=== PATIENT | female | born 1955 | race Caucasian/White ===

== ENCOUNTER 2016-08-23 18:02 | Emergency (ER) | payer OTHER ==
--- NOTE | ~2016-08-23 | EKG ---
PATIENT: MILENA VASQUEZ UNIT #: [id number] Ventricular Rate: 99 BPM Atrial Rate: 99 BPM P-R Interval: 164 ms QRS Duration: 68 ms Q-T Interval: 352 ms QTC Calculation(Bezet): 451 ms P [place]: 67 degrees Calculated R [place]: 36 degrees Calculated T [place]: 51 degrees Diagnosis Line: Sinus rhythm with occasional Premature ventricular Diagnosis Line: complexes Diagnosis Line: Otherwise normal ECG Diagnosis Line: Diagnosis Line: Confirmed by GUILLERMO CHOUDHARY MD ([id number]) on 08/24/2016 Diagnosis Line: 5:43:10 PM INTERPRETING MD: KENRICK DELANEY
--- NOTE | ~2016-08-23 | CR72 ---
[facility] A Service of [facility] RADIOLOGY TEXT RESULTS PATIENT: MILENA VASQUEZ LOCATION: [facility] : 51 UNIT #: [id number] AGE: [address]: Aj Mcnamara MD SEX: F ORDER DR: [id number] [facility] [address] [place], [place] [address] [id number] E MR#: [id number] Acc #: [id number] NAME: MILENA VASQUEZ. : 1955 SEX: F STUDY DATE/TIME: 08/23/2016 18:08 UNIT: [facility] ROOM: STUDY DESCRIPTION: CR Chest Single View Portable Attending Physician: Aj Mcnamara M.D. Ordering Physician: Aj Mcnamara M.D. Primary Care Physician: Khushbu Gongora MEDICAL IMAGING REPORT This report is preliminary unless electronic signature is present EXAM Portable chest. INDICATIONS Shortness of air for 1 week. Pneumonia. Positive smoking history. FINDINGS Single portable AP view of the chest compared to 08/02/2015. Heart and mediastinal contours are normal. Lungs are mildly hyperinflated compatible with obstructive lung disease. No pleural effusion. IMPRESSION No acute cardiopulmonary findings. Background COPD. Dictated by... Balwinder Gill M.D. THIS IS AN ELECTRONICALLY VERIFIED REPORT Balwinder Gill M.D. at 08/24/2016 10:29 AM LENNIE/sofía TD: 08/24/2016 09:10 JOB #: [id number] MEDICAL IMAGING REPORT COPY
[2016-08-23 17:58] LABS: POC - CKMB 1.5 ng/mL (0.0-7.9); POC - TROPONIN <0.05 ng/mL (<=0.05)
[2016-08-23 18:02] LABS: BASOPHIL# 0.1 X10e3 (0-0.3); BASOPHIL% 1.2 % (0-2.5); EOSINOPHIL# 0.1 X10e3 (0-0.7); EOSINOPHIL% 1.4 % (0.0-7.0); HEMATOCRIT 43.3 % (35.0-45.0); HEMOGLOBIN 14.3 gm/dL (12.0-16.0); LYMPHOCYTE# 2.1 X10e3 (1.0-3.5); MEAN CELL VOLUME 87.4 FL (83-96); MEAN CORPUSCULAR HEMOGLOBIN 28.9 PG (28-34); MONOCYTE# 0.6 X10e3 (0-1.0); MONOCYTE% 6.8 % (3.0-12.0); NEUTROPHIL% 66.6 % (40-75); PLATELET COUNT 332 X10e3 (140-420); RED BLOOD COUNT 4.96 X10e (3.90-5.30); RED CELL DISTRIBUTION WIDTH 13.9 % (11.0-15.5); WHITE BLOOD COUNT 8.9 X10e3 (4.0-10.5)
[~2016-08-23 18:02] MED LIST: ADVAIR 250-501 EAC1 IH; ADVAIR 250-501 EACH; ADVAIR 500-501 EACH IH; ALBUTEROL MININEB NEB; ALBUTEROL0.63 MG/3 IH; ALBUTEROL17 GM INH; BENTYL20 MG PO; CITALOPRAM HBR40 MG PO; COMBIVENT U/D3 M3 INH; DIAZEPAM PO; DULERA 200 MCG/13 GM INH; FLEXERIL10 M1 PO; HYDROCODON-ACE1 EAC4 PO; IBUPROFEN400 MG PO; IBUPROFEN800 MG PO; IPRATROPIUM0.2 MG/ML NEB; MOTRIN600 M1 PO; OMEPRAZOLE40 M1 PO; PHENERGAN PO; PREDNISONE PO; PREDNISONE50 MG PO; PROAIR HFA8.5 GM INH; PROVENT1 EACH NS; ROXICODONE5 M1 PO; SPIRIVA18 MCG INH; TUDORZA PRESS400 MCG IH; ULTRAM PO; ZITHROMAX PO; ZITHROMAX1 G/PKT PO; ZOFRAN PO
[2016-08-23 18:03] LABS: DIFF IND NO
[2016-08-23 18:15] LABS: ALBUMIN SERUM 3.9 g/dL (3.5-5.0); ALKALINE PHOSPHATASE 99 U/L (32-92); ALT (SGPT) 17 U/L (10-40); AST (SGOT) 19 U/L (10-42); BILIRUBIN, DIRECT 0.1 mg/dL (0.0-0.2); BILIRUBIN,INDIRECT 0.3 mg/dL (0.0-0.9); BILIRUBIN,TOTAL 0.4 mg/dL (0.2-2.0); BLOOD UREA NITROGEN 11 mg/dL (9-23); BUN/CREATININE RATIO 15.71; CALCIUM SERUM 9.3 mg/dL (8.4-10.2); CARBON DIOXIDE 28 mmol/L (22-31); CHLORIDE 101 mmol/L (100-111); CREATININE SERUM 0.7 mg/dL (0.6-1.4); GLOM FILT RATE Estimated ABOVE60 mL/min (>60); GLUCOSE FASTING 151 mg/dL (70-110); POTASSIUM 3.6 mmol/L (3.5-5.1); PROTEIN TOTAL SERUM 7.4 g/dL (6.0-8.3); SODIUM 137 mmol/L (135-145)
== END 2016-08-23 19:25 | disposition home or self-care (01) ==
LOC: CED 18:02
PROVIDERS: Emergency Medicine
DX: J44.1 Chronic obstructive pulmonary disease with (acute) exacerbation (principal); F17.200 Nicotine dependence, unspecified, uncomplicated; Z88.5 Allergy status to narcotic agent; Z88.0 Allergy status to penicillin; Z88.1 Allergy status to other antibiotic agents
CPT/HCPCS: 36415; 71010; 80048; 80076; 82553; 84484; 85025; 93005; 94640; 99284

== ENCOUNTER → 2016-10-06 | Day surgery (SDC) | payer OTHER ==
[~2016-10-06] MED LIST changes: +DULERA 100 MCG/13 GM INH; +OMNICEF300 M1 PO; +SPIRIVA RESPIMAT4 G1 INH
--- NOTE | ~2016-10-06 | OR ---
Unit #: [id number] #: [id number] Patient: MILENA VASQUEZ [id number] [address] [address] [id number] O MR#: [id number] NAME: MILENA VASQUEZ. ROOM: Date of Procedure: 10/06/2016 Admission Date: 10/06/2016 Surgeon: Kannan Aguiar M.D. : 1955 Attending Physician: Kannan Aguiar M.D. Primary Care Physician: Khushbu Gongora M.D. OPERATIVE REPORT PROCEDURE PERFORMED Esophagogastroduodenoscopy with biopsies. INDICATIONS FOR PROCEDURE The patient with chronic GERD and epigastric discomfort undergoing evaluation with upper endoscopy. MEDICATIONS Monitored anesthesia. POSTOPERATIVE FINDINGS 1. Normal esophagus. 2. Mild gastritis. Biopsies taken. 3. Mild duodenitis involving bulb. 4. Descending duodenum was normal. PLAN 1. PPI therapy. 2. Avoid NSAIDs. 3. Treat for H. pylori if positive. DESCRIPTION OF PROCEDURE The patient was explained of the procedure, risks, and benefits along with risks and benefits of anesthesia. She was brought to the endoscopy room. Propofol anesthesia was given. Bite block was placed. The scope was passed down the mouth and esophagus, stomach, duodenum, and distal duodenum. Findings as described. Biopsies taken. Gently, I pulled it out of the patient's mouth. She tolerated it well. Dictated by... Ck Palacios/beni TD: 10/07/2016 00:03 JOB #: [id number] Unit #: [id number] #: [id number] Patient: MILENA VASQUEZ OPERATIVE REPORT Page 1 of 1 X Kannan Aguiar MD X PROCEDURE OPERATIVE NOTE
== END | disposition home or self-care (01) ==
LOC: COPS 06:37
DX: K29.50 Unspecified chronic gastritis without bleeding (principal); K29.80 Duodenitis without bleeding; J44.9 Chronic obstructive pulmonary disease, unspecified; F17.210 Nicotine dependence, cigarettes, uncomplicated; Z87.19 Personal history of other diseases of the digestive system; Z88.1 Allergy status to other antibiotic agents; Z88.5 Allergy status to narcotic agent; Z79.1 Long term (current) use of non-steroidal anti-inflammatories (NSAID); Z79.899 Other long term (current) drug therapy; Z90.49 Acquired absence of other specified parts of digestive tract; Z98.51 Tubal ligation status; Z98.890 Other specified postprocedural states
CPT/HCPCS: 88305; 88312

== ENCOUNTER 2016-10-15 17:12 | Inpatient (IN) | payer OTHER ==
--- NOTE | ~2016-10-15 | CR211 ---
[facility] A Service of [facility] & [facility] RADIOLOGY TEXT RESULTS PATIENT: MILENA VASQUEZ LOCATION: [place] [address]- : [birth year] UNIT #: [id number] AGE: [address]: Ed Killian MD SEX: F ORDER DR: [id number] [facility] [address] [place], [place] [address] [id number] I MR#: [id number] Acc #: [id number] NAME: MILENA VASQUEZ. : 1955 SEX: F STUDY DATE/TIME: 10/15/2016 19:26 UNIT: [facility] ROOM: [facility] STUDY DESCRIPTION: CR Ribs Uni 2 View W PA Ch Rt Attending Physician: Ed Killian M.D. Ordering Physician: Kasia Fall M.D. Primary Care Physician: Khushbu Gongora M.D. MEDICAL IMAGING REPORT This report is preliminary unless electronic signature is present EXAM PA chest and right ribs 5 views, 10/15/2016 HISTORY Right-side chest and rib pain, cough and chest congestion since last night, COPD exacerbation. Smoking history for over 30 years. FINDINGS The heart is normal in size. Ill-defined infiltrate right lung base characteristic of pneumonia. Underlying COPD. There are no pleural effusions. Images of the right ribs demonstrate no fracture. IMPRESSION 1. COPD with infiltrate at the right lung base characteristic of pneumonia. 2. No evidence of right rib fracture. Dictated by... London Head M.D. THIS IS AN ELECTRONICALLY VERIFIED REPORT London Head M.D. at 10/16/2016 10:46 AM YANELY/edmund TD: 10/16/2016 08:24 JOB #: [id number] MEDICAL IMAGING REPORT Page 1 of 1 COPY
--- NOTE | ~2016-10-15 | EKG ---
PATIENT: MILENA VASQUEZ UNIT #: [id number] Ventricular Rate: 91 BPM Atrial Rate: 91 BPM P-R Interval: 162 ms QRS Duration: 70 ms Q-T Interval: 364 ms QTC Calculation(Bezet): 447 ms P [place]: 70 degrees Calculated R [place]: 52 degrees Calculated T [place]: 45 degrees Diagnosis Line: Sinus rhythm with occasional Premature ventricular Diagnosis Line: complexes Diagnosis Line: Otherwise normal ECG Diagnosis Line: When compared with ECG of 23-AUG-2016 17:43, Diagnosis Line: No significant change was found Diagnosis Line: Confirmed by GUILLERMO CHOUDHARY MD ([id number]) on 10/18/2016 Diagnosis Line: 9:42:00 AM INTERPRETING MD: KENRICK DELANEY
--- NOTE | ~2016-10-15 | DS ---
Unit #: [id number] #: [id number] Patient: MILENA VASQUEZ [id number] [address] [address] [id number] I MR#: [id number] NAME: MILENA VASQUEZ. ROOM: 548 Age: 61 Sex: F Admission Date: 10/15/2016 : 1955 Discharge Date: Attending Physician: Ed Killian M.D. Primary Care Physician: Khushbu Gongora M.D. DISCHARGE SUMMARY ADMIT DIAGNOSES 1. Chronic obstructive pulmonary disease exacerbation. 2. Severe chest pain. 3. Acute respiratory distress. This is a 61-year-old lady with history of acute shortness of breath, presented to the emergency room with worsening shortness of breath, fevers, chills, and non-responsive to home medications. The patient was, therefore, admitted to the hospital for COPD exacerbation. The chest x-ray shows atelectasis and background interstitial changes. No evidence of invasive lesions. Patient became progressively better. Shortness of air continued over two to three days. Patient coughed but was unable to produce sputum. Therefore, after five days of azithromycin and Rocephin as well as scheduled nebs and scheduled Dulera, patient was discharged home without difficulty. Patient was discharged home on: 1. Albuterol sulfate 3 mL four times a day as needed. 2. Spiriva, one puff daily. 3. Diazepam as needed for anxiety. 4. Mometasone/formoterol two puffs twice a day. 5. Omnicef 300 mg p.o. b.i.d. Diet is regular. Oxygen at 2L per minute. Activity as tolerated. Follow up with Dr. Killian in approximately two weeks. Dictated by... Ck Chavez TD: 10/19/2016 09:35 JOB #: [id number] Unit #: [id number] #: [id number] Patient: MILENA VASQUEZ DISCHARGE SUMMARY Page 1 of 1 X Amauri Sinha MD DISCHARGE SUMMARY
--- NOTE | ~2016-10-15 | CR72 ---
[facility] A Service of [facility] & [facility] RADIOLOGY TEXT RESULTS PATIENT: MILENA VASQUEZ LOCATION: [place] [address] : [birth year] UNIT #: [id number] AGE: [address]: Ed Killian MD SEX: F ORDER DR: [id number] [facility] [address] [place], [place] [address] [id number] I MR#: [id number] Acc #: [id number] NAME: MILENA VASQUEZ : 1955 SEX: F STUDY DATE/TIME: 10/17/2016 5:20 UNIT: [facility] ROOM: [facility] STUDY DESCRIPTION: CR Chest Single View Portable Attending Physician: Ed Killian M.D. Ordering Physician: Lori Sinha M.D. Primary Care Physician: Khushbu Gongora M.D. MEDICAL IMAGING REPORT This report is preliminary unless electronic signature is present EXAM Portable chest HISTORY Respiratory failure and cough. COMPARISON 08/23/2016, PA chest 10/15/2016 FINDINGS Portable view of the chest demonstrates patchy hyperlucency in the lung apices compatible with underlying emphysema. Prominent interstitial markings suggest background fibrosis. There is a small amount of right basilar atelectasis and/or infiltrate. Probable trace bilateral effusions. Heart and mediastinum unremarkable except mild aortic atherosclerotic changes. No invasive tubes or lines. No pneumothorax. Dictated by... Jacey Argueta M.D. THIS IS AN ELECTRONICALLY VERIFIED REPORT Jacey Argueta M.D. at 10/18/2016 10:35 PM Dameon TD: 10/17/2016 08:02 JOB #: [id number] MEDICAL IMAGING REPORT Page 1 of 1 COPY
[~2016-10-15 17:12] MED LIST changes: -DULERA 100 MCG/13 GM INH; -OMNICEF300 M1 PO; -SPIRIVA RESPIMAT4 G1 INH
[2016-10-15 18:57] LABS: BASOPHIL% 0.1 % (0-2.5); EOSINOPHIL# 0.2 X10e3 (0-0.7); EOSINOPHIL% 2.3 % (0.0-7.0); HEMATOCRIT 43.6 % (35.0-45.0); HEMOGLOBIN 14.5 gm/dL (12.0-16.0); LYMPHOCYTE# 2.1 X10e3 (1.0-3.5); LYMPHOCYTE% 26.7 % (17.0-45.0); MEAN CELL VOLUME 86.3 FL (83-96); MEAN CORPUSCULAR HEMOGLOBIN 28.6 PG (28-34); MEAN CORPUSCULAR HGB CONC 33.2 g/dL (30-36); MEAN PLATELET VOLUME 7.7 FL (6.5-11.5); MONOCYTE# 0.6 X10e3 (0-1.0); MONOCYTE% 8.3 % (3.0-12.0); NEUTROPHIL# 4.8 X10e3 (1.5-7.1); NEUTROPHIL% 62.6 % (40-75); PLATELET COUNT 366 X10e3 (140-420); RED BLOOD COUNT 5.05 X10e (3.90-5.30); WHITE BLOOD COUNT 7.7 X10e3 (4.0-10.5)
[2016-10-15 18:59] LABS: DIFF IND NO
[2016-10-15 19:11] LABS: POC - CKMB <1.0 ng/mL (0.0-7.9); POC - TROPONIN <0.05 ng/mL (<=0.05)
[2016-10-15 19:22] LABS: ALBUMIN SERUM 3.6 g/dL (3.5-5.0); BILIRUBIN, DIRECT 0.1 mg/dL (0.0-0.2); BILIRUBIN,INDIRECT 0.3 mg/dL (0.0-0.9); BILIRUBIN,TOTAL 0.4 mg/dL (0.2-2.0); CREATININE SERUM 0.5 mg/dL (0.6-1.4); POTASSIUM 3.9 mmol/L (3.5-5.1); PROTEIN TOTAL SERUM 7.2 g/dL (6.0-8.3)
[2016-10-15 21:06] LABS: POC - CKMB <1.0 ng/mL (0.0-7.9); POC - TROPONIN <0.05 ng/mL (<=0.05)
[2016-10-15] MEDS ORDERED: SPIRIVA RESPIMAT4 G1 INH (21:16)
[2016-10-15] MEDS ORDERED: DIAZEPAM PO (21:18)
[2016-10-15] MEDS ORDERED: ALBUTEROL MININEB NEB (21:19)
[2016-10-15] MEDS ORDERED: DULERA 100 MCG/13 GM INH (21:21)
[2016-10-17 05:32] LABS: BASOPHIL# 0.1 X10e3 (0-0.3); BASOPHIL% 0.8 % (0-2.5); EOSINOPHIL# 0.1 X10e3 (0-0.7); EOSINOPHIL% 1.7 % (0.0-7.0); HEMATOCRIT 37.8 % (35.0-45.0); LYMPHOCYTE# 2.2 X10e3 (1.0-3.5); MEAN CELL VOLUME 87.3 FL (83-96); MEAN CORPUSCULAR HEMOGLOBIN 28.4 PG (28-34); MEAN CORPUSCULAR HGB CONC 32.5 g/dL (30-36); MEAN PLATELET VOLUME 7.9 FL (6.5-11.5); MONOCYTE# 0.6 X10e3 (0-1.0); NEUTROPHIL# 4.1 X10e3 (1.5-7.1); NEUTROPHIL% 58.5 % (40-75); PLATELET COUNT 283 X10e3 (140-420); RED BLOOD COUNT 4.33 X10e (3.90-5.30)
[2016-10-17 05:35] LABS: DIFF IND NO; HEMOGLOBIN 12.3 gm/dL (12.0-16.0)
[2016-10-19] MEDS ORDERED: OMNICEF300 M1 PO (09:54)
== END 2016-10-19 11:29 | disposition home or self-care (01) | DRG 189 ==
LOC: CED 17:12 → C5B 21:05 → CEDOF 21:05 → CED 21:39 → C5B 21:39 → CEDOF 23:04 → C5B 23:04
PROVIDERS: Emergency Medicine; Internal Medicine Pulmonary Disease
DX: J96.20 Acute and chronic respiratory failure, unspecified whether with hypoxia or hypercapnia (principal); J44.1 Chronic obstructive pulmonary disease with (acute) exacerbation; J98.11 Atelectasis; R07.9 Chest pain, unspecified
CPT/HCPCS: 36415; 71010; 71101; 80048; 80076; 82553; 84484; 85025; 87040; 93005; 94640; 94664; 94760; 99285; J0456; J0696; J1650